=== PATIENT | female | born 1990 | race Caucasian/White ===

== ENCOUNTER 2025-03-19 09:54 | Outpatient (CLI) | payer OTHER ==
[~2025-03-19] VITALS: Ht 160 cm; Wt 56.7 kg
[2025-03-19 10:10] VITALS: BP 116/79
[2025-03-19] MEDS ORDERED: MAGNESIUM SULFATE IN WATER 0.04 GM/ML IV.SOLN IV ONE (10:49)
[2025-03-19] MEDS ORDERED: MAGNESIUM SULFATE IN WATER 500 ML IV SCH (11:30)
[2025-03-19] MEDS ORDERED: RINGERS SOLUTION,LACTATED 1,000 ML IV SCH (11:30)
[2025-03-19 12:31] LABS: BASO % 0.3 % (0.1-1.2); EOS # 0.02 (0.04-0.54); EOS % 0.2 % (0.7-7.0); LYMPH # 0.82 (1.18-3.74); LYMPH % 8.0 % (19.3-53.1); MEAN PLATELET VOLUME 10.00 fl (9.4-12.4); MONO # 0.53 (0.24-0.82); MONO % 5.2 % (4.7-12.5); NEUT # 8.78 (1.56-6.13); NEUT % 86.0 % (34.0-71.1); RED CELL DISTRIBUTION WIDTH 14.0 % (11.6-14.4)
[2025-03-19 12:42] LABS: URINE APPEARANCE Clear; URINE BILIRRUBIN Negative (NEGATIVE); URINE BLOOD Negative; URINE COLOR Yellow; URINE KETONE Negative (NEGATIVE); URINE LEUKOCYTE Trace; URINE NITRATE Negative; URINE PROTEIN Negative (NEGATIVE); URINE UROBILINOGEN 0.2 E.U./dl
[2025-03-19 12:49] LABS: URINE BACTERIA 911.9 uL (0.0-1933); URINE EPITHELIAL CELLS 14.2 uL (0.0-38.8); URINE RBC 3.5 uL (0.0-20.8); URINE WBC 14.1 uL (0.0-23.2)
[2025-03-19 12:52] LABS: URINE CAST 0.00 uL (0.0-1.40); URINE GLUCOSE 250 MG/DL (NEGATIVE)
[2025-03-19 13:06] LABS: ALT/SGPT 18.0 U/L (12-78); AST/SGOT 13.0 U/L (15-37); BILIRUBIN TOTAL 0.3 mg/dL (0.3-1.2); BUN CREA RATIO 14.0 (7.0-25.0); CREATININE SERUM 0.56 mg/dL (0.55-1.02); GFR 123.92; GLOBULINA 3.2 G/DL (2.4-3.5); GLUCOSE FASTING 79.0 mg/dL (65-100); INR < 0.93; OSMOLALITY SERUM 277.0 MOSM/KG (275-295)
[2025-03-19 15:35] VITALS: BP 105/68
[2025-03-19 19:37] VITALS: BP 105/66; O2SAT 99
[2025-03-19 23:33] VITALS: BP 100/61
[2025-03-20 03:46] VITALS: BP 96/60
[2025-03-20 06:21] VITALS: BP 105/66; O2SAT 100
== END 2025-03-20 09:28 | disposition home or self-care (01) ==
LOC: NST 09:54 → LDR 10:21 → NST 10:21 → LDR 11:26 → NST 03-20 09:28
PROVIDERS: ATTEND Obstetrics & Gynecology
DX: Z34.82 Encounter for supervision of other normal pregnancy, second trimester (principal)

== ENCOUNTER 2025-03-21 07:31 | Outpatient (CLI) | payer OTHER | END 2025-03-21 07:38 | disposition left against medical advice (07) | LOC: OBS/DEL 07:31 | PROVIDERS: ATTEND Obstetrics & Gynecology | DX: O26.892 Other specified pregnancy related conditions, second trimester (principal); Z3A.26 26 weeks gestation of pregnancy ==

== ENCOUNTER 2025-03-21 19:20 | Outpatient (CLI) | payer OTHER ==
[2025-03-21 17:45] VITALS: BP 123/81
[2025-03-21] MEDS ORDERED: RINGERS SOLUTION,LACTATED 1,000 ML IV SCH (19:45)
[2025-03-21 20:02] LABS: URINE APPEARANCE Clear; URINE BILIRRUBIN Negative (NEGATIVE); URINE BLOOD Negative; URINE COLOR Yellow; URINE LEUKOCYTE Negative; URINE NITRATE Negative; URINE PROTEIN Trace (NEGATIVE); URINE UROBILINOGEN 0.2 E.U./dl
[2025-03-21 20:04] LABS: URINE BACTERIA 211.2 uL (0.0-1933); URINE EPITHELIAL CELLS 3.8 uL (0.0-38.8); URINE WBC 7.3 uL (0.0-23.2)
[2025-03-21 20:05] LABS: BASO % 0.2 % (0.1-1.2); EOS # 0.01 (0.04-0.54); EOS % 0.1 % (0.7-7.0); LYMPH # 0.88 (1.18-3.74); LYMPH % 9.1 % (19.3-53.1); MEAN PLATELET VOLUME 9.60 fl (9.4-12.4); MONO # 0.53 (0.24-0.82); MONO % 5.5 % (4.7-12.5); NEUT # 8.16 (1.56-6.13); NEUT % 84.8 % (34.0-71.1); RED CELL DISTRIBUTION WIDTH 13.7 % (11.6-14.4)
[2025-03-21 20:06] LABS: URINE CAST 0.14 uL (0.0-1.40); URINE GLUCOSE 100 MG/DL (NEGATIVE); URINE KETONE 40 (NEGATIVE); URINE RBC 1.3 uL (0.0-20.8)
[2025-03-21 20:26] VITALS: BP 114/73
[2025-03-21 20:34] LABS: ALT/SGPT 20.0 U/L (12-78); AST/SGOT 12.0 U/L (15-37); BILIRUBIN TOTAL 0.16 mg/dL (0.3-1.2); BUN CREA RATIO 18.0 (7.0-25.0); CREATININE SERUM 0.49 mg/dL (0.55-1.02); GFR 144.56; GLOBULINA 3.6 G/DL (2.4-3.5); GLUCOSE FASTING 108.0 mg/dL (65-100); OSMOLALITY SERUM 279.0 MOSM/KG (275-295)
[2025-03-21 23:30] VITALS: BP 111/72
[2025-03-22 04:06] VITALS: BP 105/64
[2025-03-22 07:17] VITALS: BP 117/79
[2025-03-22 11:15] VITALS: BP 117/79
== END 2025-03-22 11:15 | disposition home or self-care (01) ==
LOC: OBS/DEL 19:20
PROVIDERS: ATTEND Obstetrics & Gynecology
DX: O26.892 Other specified pregnancy related conditions, second trimester (principal); R10.20 Pelvic and perineal pain unspecified side; Z3A.26 26 weeks gestation of pregnancy